=== PATIENT | male | born 1990 | race Caucasian/White ===

== ENCOUNTER 2021-04-17 11:26 | Emergency (ER) | payer OTHER ==
[~2021-04-17] VITALS: Ht 167.6 cm; Wt 77.1 kg
[2021-04-17 11:47] LABS: ABSOLUTE NEUTROPHILS 3.6 thou/uL (1.4-8.2); BASOPHILS 1.1 % (0.0-2.0); EOSINOPHILS 1.7 % (0.0-3.0); HEMATOCRIT 46.1 % (42.0-52.0); HEMOGLOBIN 15.6 gm/dL (14.0-18.0); LYMPHOCYTES 28.1 % (24.0-44.0); MCH 29.3 pg (26.0-34.0); MCHC 33.7 g/dL (28.0-37.0); PLATELET COUNT 160 thou/uL (150-400); POLYS 63.1 % (36.0-66.0); RBC 5.31 mil/uL (4.50-6.00); RDW 13.1 % (10.5-14.5); WBC 5.8 thou/uL (4.0-11.0)
[2021-04-17 11:58] LABS: CREATININE 1.2 mg/dL (0.7-1.3)
[2021-04-17 12:04] LABS: ALBUMIN 4.3 g/dL (3.4-5.0); TOTAL BILIRUBIN 0.6 mg/dL (0.2-1.0); TOTAL PROTEIN 7.5 g/dL (6.4-8.2)
[2021-04-17 13:49] LABS: URINE BLOOD 3+ (Negative); URINE CLARITY SL CLOUDY; URINE COLOR YELLOW; URINE GLUCOSE-RANDOM* NEGATIVE (Negative); URINE KETONES TRACE (Negative); URINE LEUKOCYTES-REFLEX NEGATIVE (Negative); URINE NITRITE-REFLEX NEGATIVE (Negative); URINE PROTEIN (DIPSTICK) 1+ (Negative); URINE SPECIFIC GRAVITY >= 1.030 (1.005-1.035)
[2021-04-17 13:53] LABS: ICTOTEST (BILI CONFIRMATORY) Negative (Negative); URINE BILIRUBIN NEGATIVE (Negative)
[2021-04-17 14:02] LABS: AMORPHOUS URATES Moderate /LPF (None Seen); BACTERIA-REFLEX 1-9 Few /HPF (None Seen); CASTS None Seen /LPF (None Seen); SQUAMOUS None Seen /LPF (0-3); URINE RBC >20 Many /HPF (NONE SEEN); URINE WBC-REFLEX 6-15 Few /HPF (0-5)
[2021-04-17] MEDS ORDERED: ZOFRAN ODT4 MG PO (14:15)
[2021-04-17] MEDS ORDERED: FLOMAX0.4 MG PO (14:15)
[2021-04-17] MEDS ORDERED: CEPHALEXIN500 MG PO (14:15)
[2021-04-17] MEDS ORDERED: NORCO5 PO (14:15)
[2021-04-17 14:17] VITALS: BP 143/85
== END 2021-04-17 14:14 | disposition home or self-care (01) ==
LOC: ER 11:26
PROVIDERS: Nurse Practitioner Family
DX: N20.1 Calculus of ureter (principal); N39.0 Urinary tract infection, site not specified